=== PATIENT | female | born 1955 | race Caucasian/White ===

== ENCOUNTER 2024-04-28 12:54 | Day surgery (SDC) | payer BC ==
[2024-04-28] MEDS: Denosumab 60 MG/ML SQ SCH (13:54)
[2024-04-28 14:47] VITALS: BP 139/64; TEMP 98.2
== END 2024-04-28 14:48 | disposition home or self-care (01) ==
LOC: ONC/OP 12:54
PROVIDERS: ATTEND Internal Medicine
DX: M81.0 Age-related osteoporosis without current pathological fracture (principal); E11.9 Type 2 diabetes mellitus without complications; K21.9 Gastro-esophageal reflux disease without esophagitis; E78.00 Pure hypercholesterolemia, unspecified; I10 Essential (primary) hypertension; G43.709 Chronic migraine without aura, not intractable, without status migrainosus; M19.90 Unspecified osteoarthritis, unspecified site; E66.9 Obesity, unspecified; Z68.34 Body mass index [BMI] 34.0-34.9, adult; Z79.899 Other long term (current) drug therapy; Z98.84 Bariatric surgery status; Z86.16 Personal history of COVID-19; Z90.49 Acquired absence of other specified parts of digestive tract; Z98.890 Other specified postprocedural states
CPT/HCPCS: 96372; J0897